=== PATIENT | female | born 1990 | race Caucasian/White ===

== ENCOUNTER → 2016-07-24 | Outpatient (REF) | payer MEDICAID | LOC: M LAB REF 15:15 | PROVIDERS: ATTEND Physician Assistant | DX: B34.9 Viral infection, unspecified (principal) ==

== ENCOUNTER 2016-07-29 11:20 | Emergency (ER) | payer MEDICAID ==
[~2016-07-29] VITALS: Ht 172.7 cm; Wt 72.6 kg
[2016-07-29 11:22] VITALS: BP 151/71
[2016-07-29] MEDS ORDERED: CITA20TA4 (11:57)
[2016-07-29] MEDS ORDERED: ADDE20CA (11:57)
[2016-07-29] MEDS ORDERED: VALA500T (11:57)
[2016-07-29] MEDS ORDERED: NS 1,000 ML IV ONE (13:45)
[2016-07-29 14:06] LABS: BASO % 0.3 % (0.0-1.0); EOS # 0.1 K/mm3 (0.0-0.50); EOS % 1.2 % (0.0-3.0); LARGE UNSTAINED CELL # 0.1 K/mm3 (0.0-0.4); LARGE UNSTAINED CELL % 1.1 % (0.0-4.0); LYMPH # 1.2 K/mm3 (1.5-6.5); LYMPH % 13.1 % (24.0-44.0); MEAN CORPUSCULAR HEMOGLOBIN 31.5 pg (27.0-33.0); MEAN CORPUSCULAR HGB CONC 34.7 g/dl (32.0-36.5); MEAN CORPUSCULAR VOLUME 90.7 fl (80.0-96.0); MONO # 0.4 K/mm3 (0.0-0.8); MONO % 5.4 % (0.0-5.0); NEUTROPHILS # 6.5 K/mm3 (1.8-7.7); NEUTROPHILS % 78.8 % (36.0-66.0); PLATELET COUNT, AUTOMATED 197 k/mm3 (150-450); WHITE BLOOD COUNT 8.2 K/mm3 (4.0-10.0)
[2016-07-29 14:26] LABS: ANION GAP 6 MEQ/L (8-16); BLOOD UREA NITROGEN 9 MG/DL (7-18); CALCIUM LEVEL 9.2 MG/DL (8.5-10.1); CARBON DIOXIDE LEVEL 30 MEQ/L (21-32); CHLORIDE LEVEL 104 MEQ/L (98-107); GLOMERULAR FILTRATION RATE > 60.0 (>60); GLUCOSE, FASTING 87 MG/DL (70-105); POTASSIUM SERUM 3.5 MEQ/L (3.5-5.1); SODIUM LEVEL 140 MEQ/L (136-145)
[2016-07-29] MEDS ORDERED: MACR100C3 PO (14:41)
--- NOTE | 2016-07-30 10:37 | ECGEPIP ---
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
== END 2016-07-29 14:57 | disposition home or self-care (01) ==
LOC: M ED 11:20
DX: N30.00 Acute cystitis without hematuria (principal); R11.2 Nausea with vomiting, unspecified; R42 Dizziness and giddiness; M54.5 Low back pain; F17.210 Nicotine dependence, cigarettes, uncomplicated; F41.9 Anxiety disorder, unspecified; Z79.899 Other long term (current) drug therapy

== ENCOUNTER → 2016-08-04 | Outpatient (REF) | payer MEDICAID ==
[~2016-08-04] MED LIST: ADDE20CA; CITA20TA4; MACR100C3 PO; VALA500T
== END ==
LOC: M SFHCADAM 20:01
PROVIDERS: ATTEND Physician Assistant Medical
DX: N30.00 Acute cystitis without hematuria (principal)

== ENCOUNTER → 2016-08-13 | Outpatient (REF) | payer MEDICAID | LOC: M SFHCADAM 15:32 | PROVIDERS: ATTEND Physician Assistant Medical | DX: N30.00 Acute cystitis without hematuria (principal) ==

== ENCOUNTER 2016-11-08 10:26 | Emergency (ER) | payer MEDICAID, SELFPAY ==
[~2016-11-08] VITALS: Ht 172.7 cm; Wt 75.8 kg
[~2016-11-08 10:26] MED LIST changes: -ADDE20CA; +ADDE20CA3; -MACR100C3 PO; +MACR100C43 PO; -VALA500T; +VALA500T2
[2016-11-08] MEDS ORDERED: ADDE25CA PO (10:39)
[2016-11-08] MEDS ORDERED: CELE20TA PO (10:39)
[2016-11-08 11:54] LABS: BASO % 0.4 % (0.0-1.0); EOS % 0.6 % (0.0-3.0); LARGE UNSTAINED CELL # 0.1 K/mm3 (0.0-0.4); LARGE UNSTAINED CELL % 0.8 % (0.0-4.0); LYMPH # 0.6 K/mm3 (1.5-6.5); LYMPH % 6.3 % (24.0-44.0); MEAN CORPUSCULAR HEMOGLOBIN 31.2 pg (27.0-33.0); MEAN CORPUSCULAR HGB CONC 34.3 g/dl (32.0-36.5); MEAN CORPUSCULAR VOLUME 91.1 fl (80.0-96.0); MONO # 0.4 K/mm3 (0.0-0.8); MONO % 4.5 % (0.0-5.0); NEUTROPHILS # 7.1 K/mm3 (1.8-7.7); NEUTROPHILS % 87.4 % (36.0-66.0); PLATELET COUNT, AUTOMATED 190 k/mm3 (150-450); RED CELL DISTRIBUTION WIDTH 11.6 % (11.5-14.5); WHITE BLOOD COUNT 8.1 K/mm3 (4.0-10.0)
[2016-11-08 12:00] LABS: ALBUMIN 3.8 GM/DL (3.2-5.2); ALBUMIN/GLOBULIN RATIO 1.19 (1.00-1.93); ALKALINE PHOSPHATASE 53 U/L (45-117); ALT/SGPT 30 U/L (12-78); ANION GAP 4 MEQ/L (8-16); AST/SGOT 18 U/L (15-37); BILIRUBIN,TOTAL 0.9 MG/DL (0.2-1.0); BLOOD UREA NITROGEN 12 MG/DL (7-18); CARBON DIOXIDE LEVEL 31 MEQ/L (21-32); CHLORIDE LEVEL 103 MEQ/L (98-107); CREATININE FOR GFR 0.66 MG/DL (0.55-1.02); GLOMERULAR FILTRATION RATE > 60.0 (>60); GLUCOSE, FASTING 82 MG/DL (70-105); POTASSIUM SERUM 3.9 MEQ/L (3.5-5.1); SODIUM LEVEL 138 MEQ/L (136-145)
--- NOTE | 2016-11-08 12:04 | REP ---
PA and lateral chest: Comparison is a 03/20/2011. There is thoracic scoliosis convex right in the upper thoracic spine, unchanged. Lung parson are clear. Cardiac size is normal. The amarjit, mediastinum, and bony thorax are unremarkable. Impression: There are no acute cardiopulmonary findings. No interval change. Signed by Hiro Caballero MD 11/08/2016 11:56 A
[2016-11-08 12:36] VITALS: BP 131/75
[2016-11-08] MEDS ORDERED: TYLE325T5 PO (12:36)
== END 2016-11-08 12:50 | disposition home or self-care (01) ==
LOC: M ED 10:54
DX: M54.9 Dorsalgia, unspecified (principal); A60.00 Herpesviral infection of urogenital system, unspecified; F41.9 Anxiety disorder, unspecified; Z79.899 Other long term (current) drug therapy

== ENCOUNTER → 2016-11-27 | Outpatient (REF) | payer MEDICAID, OTHER ==
[~2016-11-27] MED LIST changes: +ADDE25CA PO; +CELE20TA PO; +GABA-282 PO; +MECL-68 PO; +NAPR500T PO; +ROBA500T PO; +TYLE325T5 PO
== END ==
LOC: M SFHCWAGY 16:08
PROVIDERS: ATTEND Nurse Practitioner Women's Health
DX: Z12.4 Encounter for screening for malignant neoplasm of cervix (principal); R87.610 Atypical squamous cells of undetermined significance on cytologic smear of cervix (ASC-US)

== ENCOUNTER → 2016-12-11 | Outpatient (REF) | payer MEDICAID, OTHER ==
[2016-12-14 00:11] LABS: Lyme Disease IgG/IgM Antibodie <0.91 ISR (0.00-0.90); Lyme Disease IgM Ab Quantitati <0.80 index (0.00-0.79)
== END ==
LOC: M SFHCADAM 14:23
PROVIDERS: ATTEND Physician Assistant Medical
DX: R53.83 Other fatigue (principal); R53.81 Other malaise; M79.1 Myalgia

== ENCOUNTER 2017-01-20 09:44 | Emergency (ER) | payer OTHER ==
[~2017-01-20] VITALS: Ht 172.7 cm; Wt 73.6 kg
[~2017-01-20 09:44] MED LIST changes: -GABA-282 PO; -MECL-68 PO; -NAPR500T PO; -ROBA500T PO
[2017-01-20] MEDS ORDERED: MECLIZINE 25 MG TABLET PO ONE (10:30)
[2017-01-20 10:39] LABS: BASO % 0.6 % (0.0-1.0); EOS # 0.1 K/mm3 (0.0-0.50); EOS % 2.2 % (0.0-3.0); LARGE UNSTAINED CELL # 0.1 K/mm3 (0.0-0.4); LARGE UNSTAINED CELL % 1.7 % (0.0-4.0); LYMPH # 1.4 K/mm3 (1.5-6.5); LYMPH % 21.4 % (24.0-44.0); MEAN CORPUSCULAR HGB CONC 34.4 g/dl (32.0-36.5); MEAN CORPUSCULAR VOLUME 90.3 fl (80.0-96.0); MONO # 0.4 K/mm3 (0.0-0.8); MONO % 6.1 % (0.0-5.0); NEUTROPHILS % 68.1 % (36.0-66.0); PLATELET COUNT, AUTOMATED 197 k/mm3 (150-450); WHITE BLOOD COUNT 5.9 K/mm3 (4.0-10.0)
[2017-01-20 11:05] LABS: ANION GAP 5 MEQ/L (8-16); BLOOD UREA NITROGEN 15 MG/DL (7-18); CALCIUM LEVEL 9.4 MG/DL (8.5-10.1); CARBON DIOXIDE LEVEL 30 MEQ/L (21-32); CHLORIDE LEVEL 105 MEQ/L (98-107); CREATININE FOR GFR 0.76 MG/DL (0.55-1.02); GLOMERULAR FILTRATION RATE > 60.0 (>60); GLUCOSE, FASTING 87 MG/DL (70-105); POTASSIUM SERUM 4.3 MEQ/L (3.5-5.1); SODIUM LEVEL 140 MEQ/L (136-145)
--- NOTE | 2017-01-20 11:15 | REP ---
CT Head without contrast HISTORY: Syncope COMPARISON: None There is no intraparenchymal hemorrhage, acute infarct, mass or midline shift. The ventricular system is normal in appearance. There is no extra cerebral collection. A irene cisterna magna is present. There is no fracture. The visualized sinuses are clear. IMPRESSION: There is no intracranial lesion. Signed by Rey Guzman MD 01/20/2017 11:06 A
[2017-01-20 11:24] VITALS: BP 146/92
[2017-01-20] MEDS ORDERED: MECL-68 PO (11:39)
== END 2017-01-20 11:44 | disposition home or self-care (01) ==
LOC: M ED 09:44
DX: H81.399 Other peripheral vertigo, unspecified ear (principal); F41.9 Anxiety disorder, unspecified; M54.5 Low back pain; A60.09 Herpesviral infection of other urogenital tract; Z79.899 Other long term (current) drug therapy

== ENCOUNTER → 2017-02-24 | Outpatient (REF) | payer OTHER ==
[~2017-02-24] MED LIST changes: +GABA-282 PO; +MECL-68 PO; +NAPR500T PO; +ROBA500T PO
== END ==
LOC: M SFHCADAM 16:02
PROVIDERS: ATTEND Physician Assistant Medical
DX: Z20.820 Contact with and (suspected) exposure to varicella (principal)

== ENCOUNTER → 2017-02-24 | Outpatient (CLI) | payer OTHER ==
--- NOTE | 2017-02-24 16:35 | REP ---
LUMBAR SPINE, FIVE VIEWS: HISTORY: Back pain. COMPARISON: 01/08/2011 There is no acute fracture or subluxation. The L3-4 and L4-5 intervertebral discs are decreased in height consistent with disc degeneration. The facet joints are normal in appearance. IMPRESSION: Degenerative change as described above. Signed by Rey Guzman MD 02/24/2017 04:36 P
== END ==
LOC: M RAD 15:26
PROVIDERS: ATTEND Physician Assistant
DX: M54.5 Low back pain (principal)

== ENCOUNTER 2017-02-27 12:30 | Emergency (ER) | payer OTHER ==
[~2017-02-27] VITALS: Ht 172.7 cm; Wt 72.7 kg
[~2017-02-27 12:30] MED LIST changes: -GABA-282 PO; -NAPR500T PO; -ROBA500T PO
[2017-02-27] MEDS ORDERED: GABA-282 PO (15:27)
[2017-02-27] MEDS ORDERED: ROBA500T PO (15:27)
[2017-02-27] MEDS ORDERED: NAPR500T PO (15:27)
[2017-02-27 15:40] VITALS: BP 128/78
== END 2017-02-27 15:40 | disposition home or self-care (01) ==
LOC: M ED 12:30
DX: M54.42 Lumbago with sciatica, left side (principal); M53.3 Sacrococcygeal disorders, not elsewhere classified

== ENCOUNTER → 2017-06-07 | Outpatient (REF) | payer OTHER ==
[2017-06-07 18:16] LABS: BASO % 0.6 % (0.0-1.0); EOS # 0.2 10^3/uL (0.0-0.50); EOS % 3.4 % (0.0-3.0); HEMATOCRIT 41.3 % (36.0-47.0); HEMOGLOBIN 14.3 g/dl (12.0-16.0); IMMATURE GRANULOCYTE % 0.3 % (0-0); LYMPH # 1.4 10^3/uL (1.5-6.5); LYMPH % 19.5 % (24.0-44.0); MEAN CORPUSCULAR HGB CONC 34.6 g/dl (32.0-36.5); MEAN CORPUSCULAR VOLUME 86.6 fl (80.0-96.0); MONO # 0.6 10^3/uL (0.0-0.8); MONO % 8.2 % (0.0-5.0); NEUTROPHILS # 4.8 10^3/uL (1.8-7.7); PLATELET COUNT, AUTOMATED 250 10^3/uL (150-450); RED BLOOD COUNT 4.77 10^6/uL (4.00-5.40); RED CELL DISTRIBUTION WIDTH 11.7 % (11.5-14.5); WHITE BLOOD COUNT 7.1 10^3/uL (4.0-10.0)
[2017-06-07 18:39] LABS: ALBUMIN 4.2 GM/DL (3.2-5.2); ALBUMIN/GLOBULIN RATIO 1.35 (1.00-1.93); ALKALINE PHOSPHATASE 54 U/L (45-117); ALT/SGPT 29 U/L (12-78); ANION GAP 5 MEQ/L (8-16); AST/SGOT 19 U/L (7-37); BILIRUBIN,TOTAL 0.7 MG/DL (0.2-1.0); BLOOD UREA NITROGEN 15 MG/DL (7-18); CARBON DIOXIDE LEVEL 31 MEQ/L (21-32); CHLORIDE LEVEL 106 MEQ/L (98-107); CREATININE FOR GFR 0.65 MG/DL (0.55-1.02); GLOMERULAR FILTRATION RATE > 60.0 (>60); GLUCOSE, FASTING 85 MG/DL (70-105); SODIUM LEVEL 142 MEQ/L (136-145); TOTAL PROTEIN 7.3 GM/DL (6.4-8.2)
[2017-06-08 07:28] LABS: CONTROL LINE MONO RF C INT CTR LINE PRESENT; MONO REFLEX EBV COMP NEGATIVE (NEGATIVE)
[2017-06-10 00:07] LABS: EBV VIRAL CAPSID AG IgM <36.0 U/mL (0.0-35.9)
[2017-06-10 00:07] LABS: EBV AB TO NUCLEAR ANTIGEN <18.0 U/mL (0.0-17.9); EBV VIRAL CAPSID AG IgG 27.9 U/mL (0.0-17.9)
== END ==
LOC: M LABDRWAD 09:16
DX: R53.83 Other fatigue (principal)

== ENCOUNTER → 2017-07-01 | Outpatient (REF) | payer OTHER | LOC: M SFHCLERA 14:48 | DX: L29.9 Pruritus, unspecified (principal) ==

== ENCOUNTER → 2017-08-03 | Outpatient (REF) | payer OTHER | LOC: M SFHCLERA 11:56 | DX: D48.5 Neoplasm of uncertain behavior of skin (principal) | CPT/HCPCS: 88305 ==

== ENCOUNTER 2017-08-07 13:06 | Emergency (ER) | payer OTHER | END 2017-08-07 15:14 | disposition home or self-care (01) | LOC: M ED 13:06 | DX: S16.1XXA Strain of muscle, fascia and tendon at neck level, initial encounter (principal); V49.49XA Driver injured in collision with other motor vehicles in traffic accident, initial encounter; Y92.410 Unspecified street and highway as the place of occurrence of the external cause; G89.29 Other chronic pain; M54.5 Low back pain; Z79.899 Other long term (current) drug therapy | CPT/HCPCS: 72125 ==

== ENCOUNTER → 2017-11-09 | Outpatient (REF) | payer OTHER | LOC: M SFHCLERA 21:20 | DX: T14.8XXA Other injury of unspecified body region, initial encounter (principal); X58.XXXA Exposure to other specified factors, initial encounter; Y92.89 Other specified places as the place of occurrence of the external cause | CPT/HCPCS: 87186; 87205 ==

== ENCOUNTER → 2017-12-22 | Outpatient (REF) | payer OTHER | LOC: M SFHCWAGY 14:40 | DX: Z12.4 Encounter for screening for malignant neoplasm of cervix (principal) | CPT/HCPCS: 88142 ==

== ENCOUNTER → 2018-06-21 | Outpatient (REF) | payer OTHER ==
[~2018-06-21] MED LIST changes: +DOXY150T9 PO; +GABA-843 PO; +MELO15TA28 PO; +NAPR-50 PO; +ROBA500T PO; -VALA500T2; +VALA500T5
[2018-06-21 17:45] LABS: CHLAMYDIA DNA AMPLIFICATION NEGATIVE (NEGATIVE); GC DNA AMPLIFICATION NEGATIVE (NEGATIVE)
== END ==
LOC: M SFHCWAGY 15:26
PROVIDERS: ATTEND Nurse Practitioner Women's Health
DX: Z11.3 Encounter for screening for infections with a predominantly sexual mode of transmission (principal)

== ENCOUNTER → 2018-06-24 | Outpatient (CLI) | payer OTHER ==
--- NOTE | 2018-06-24 21:31 | REP ---
Clinical: Pelvic pain abnormal vaginal bleeding. Technique: Transabdominal pelvic ultrasound followed by transvaginal examination for better evaluation of the endometrium and adnexa with color Doppler evaluation of the ovaries. Findings: Bladder is unremarkable and measures 9.7 x 4.7 x 8.4 cm . Heterogeneous anteverted uterus measures 7.3 x 3.0 x 4.5 cm . The endometrial complex measures 4.1 mm thickness. No discrete uterine or endometrial abnormalities are appreciated. Subcentimeter Nabothian cyst noted in the lower uterine segment. Bilateral ovaries are normal in appearance and vascularity without evidence for torsion. Right ovary measures 2.3 x 1.1 x 2.3 cm ; R I = 0.40 . Left ovary measures 2.3 x 1.0 x 2.4 cm ; R I = 0.52 . No pelvic fluid or adnexal mass lesion . Impression: 1. Essentially normal pelvic ultrasound. No torsion. Electronically Signed by Rajat Pastor MD 06/24/2018 09:22 P
== END ==
LOC: M WHC 11:14
PROVIDERS: ATTEND Nurse Practitioner Women's Health
DX: R10.9 Unspecified abdominal pain (principal); R14.0 Abdominal distension (gaseous); N92.1 Excessive and frequent menstruation with irregular cycle

== ENCOUNTER → 2018-10-08 | Outpatient (REF) | payer OTHER ==
[~2018-10-08] MED LIST changes: -CITA20TA4; +CITA20TA6; -NAPR-50 PO; +NAPR-837 PO
[2018-10-08 20:50] LABS: FREE T4 0.81 NG/DL (0.76-1.46); THYROID STIMULATING HORMONE 1.84 uIU/ML (0.358-3.740)
== END ==
LOC: M SFHCADAM 15:50
PROVIDERS: ATTEND Physician Assistant Medical
DX: E66.3 Overweight (principal)

== ENCOUNTER → 2019-02-28 | Outpatient (CLI) | payer OTHER ==
--- NOTE | 2019-02-28 14:17 | REP ---
REASON: Arm paresthesias particularly on the left side. PRIORS: None. No history of trauma whatsoever. Vertebral body height and alignment is within normal limits. There is slight posterior disc space narrowing at every level. There is a subtle kyphotic curve seen on the neutral lateral view, however, flexion and extension lateral views show no evidence of significant range of motion deficit radiographically. The facet joints are well aligned bilaterally. The intervertebral foramina are ample bilaterally. IMPRESSION: No etta abnormality is noted. Findings as described above. Electronically Signed by Jarrod Farmer DO 02/28/2019 02:40 P
== END ==
LOC: M ADAMS 09:59
PROVIDERS: ATTEND Physician Assistant Medical
DX: R20.2 Paresthesia of skin (principal)

== ENCOUNTER → 2020-07-29 | Outpatient (CLI) | payer OTHER ==
[~2020-07-29] MED LIST changes: +BUPR15TA PO; +GABA-282 PO; -GABA-843 PO; -MECL-68 PO; +MECL1TAB31 PO; -VALA500T5; +VALA500T5 PO; +VENL75CA2 PO
== END ==
LOC: M LABSMTC 08:35
PROVIDERS: ATTEND Anesthesiology
DX: Z01.812 Encounter for preprocedural laboratory examination (principal); Z20.822 Contact with and (suspected) exposure to COVID-19

== ENCOUNTER 2020-08-03 05:46 | Day surgery (SDC) | payer OTHER ==
[~2020-08-03] VITALS: Ht 175.3 cm; Wt 91.2 kg
[2020-08-03 06:32] LABS: HEMATOCRIT 39.8 % (36.0-47.0); HEMOGLOBIN 13.1 g/dl (12.0-15.5); MEAN CORPUSCULAR HEMOGLOBIN 29.9 pg (27.0-33.0); MEAN CORPUSCULAR HGB CONC 32.9 g/dl (32.0-36.5); MEAN CORPUSCULAR VOLUME 90.9 fl (80.0-96.0); PLATELET COUNT, AUTOMATED 204 10^3/uL (150-450); RED BLOOD COUNT 4.38 10^6/uL (4.00-5.40); WHITE BLOOD COUNT 7.4 10^3/uL (4.0-10.0)
[2020-08-03] MEDS ORDERED: LR 1,000 ML IV ONE (07:00)
[2020-08-03] MEDS ORDERED: BUPIVACAINE HCL 0.25% 30ML VIAL As Ordered ONE (07:12)
[2020-08-03] MEDS ORDERED: SILVER NITRATE APPLICATOR As Ordered ONE (07:12)
[2020-08-03] MEDS ORDERED: SUGAMMADEX SODIUM 500 MG/5 ML VIAL (BRIDION) As Ordered ONE (07:17)
[2020-08-03] MEDS ORDERED: ROCURONIUM BROMIDE 50 MG/5 ML VIAL As Ordered ONE (07:17)
[2020-08-03] MEDS ORDERED: propofoL 200 MG/20 ML VIAL As Ordered ONE (07:17)
[2020-08-03] MEDS ORDERED: dexameTHASONE 4 MG/ML 1ML VIAL (J1100 PER 1MG) As Ordered ONE (07:17)
[2020-08-03] MEDS ORDERED: ACETAMINOPHEN 1000MG 100ML IV BTL (OFIRMEV) (J0131 PER 10MG) As Ordered ONE (07:17)
[2020-08-03] MEDS ORDERED: KETOROLAC 60MG 2ML VIAL As Ordered ONE (07:17)
[2020-08-03] MEDS ORDERED: LIDOCAINE 2% 100MG/5ML SDV (FOR ANES.) As Ordered ONE (07:17)
[2020-08-03] MEDS ORDERED: ONDANSETRON 4MG/2ML VIAL As Ordered ONE (07:17)
[2020-08-03] MEDS ORDERED: fentaNYL 100 MCG/2 ML INJECTION (J3010) As Ordered ONE ×2 (07:18→08:04)
[2020-08-03] MEDS ORDERED: MIDAZOLAM INJ 2MG/2ML VIAL (J2250 PER 1MG) As Ordered ONE (07:18)
[2020-08-03] MEDS ORDERED: LIDOCAINE 5% OINT 30GM TUBE As Ordered ONE (07:45)
--- NOTE | 2020-08-03 08:34 | ROOPDOC ---
[facility] Report Of Operation Report of Operation Date of procedure: 08/03/20 Preoperative diagnosis: Satisfied parity. Postoperative diagnosis: Same Procedure: Laparoscopic bilateral salpingectomy Anesthesia: Gen. endotracheal Estimated blood loss 5 mL IV fluids replaced 800 mL lactated Ringer's Drains: In and out catheter 100 mL of urine Complications: None Preoperative antibiotics: None indicated Specimens: Bilateral fallopian tubes Intraoperative findings: Normal size, shape, contour of the uterus. Normal adnexa/ovaries bilaterally. Minimal pelvic adhesions Procedure: The patient was counseled and consented on the risks, benefits, indications, and alternatives of the procedure. Informed consent was obtained. She was taken to the operating room with an IV running. She was placed on the operating table in the dorsal supine position. Gen. anesthesia was administered and the airway was secured without any difficulty. A timeout was performed per protocol. She was prepared and draped in the normal sterile fashion. Attention was turned to the pelvis. The bladder was drained with in and out sterile catheter. A speculum was placed into the vagina with good visualization of the cervix. A single- tooth tenaculum was placed on the anterior lip of the cervix and downward traction was applied. The cervix was sequentially dilated with Gallito dilators up to a #16. A ZUMI uterine manipulator was placed without any difficulty. The single-tooth tenaculum was removed. The tenaculum sites were noted to be hemostatic. A sterile glove switch was performed. Attention was turned to the abdomen. A 5mm umbilical incision was made with the 11 blade. Through this incision, a Veress needle was placed into the intraperitoneal cavity. Intraperitoneal placement was confirmed with ease of flow of normal saline, a positive drop test and no return on aspiration. The opening pressure was 2 mmHg. The abdomen was insufflated with 2 L of CO2. The Veress needle was removed. A 5 mm laparoscopic trocar was placed under direct visualization without any difficulty, and intraperitoneal placement was confirmed. No incidental bleeding or injury was evident. The patient was placed in steep Trendelenburg. 2 additional laparoscopic port sites were placed through 5 mm incisions in the lower left quadrant. Each trocar/cannula was placed under direct visualization without any difficulty, incidental bleeding or injury. Attention was turned to the right fallopian tube. The right fallopian tube was followed out to the fimbriated end, grasped and elevated. The underlying mesosalpinx was sequentially clamped, coagulated and transected, until the level of the cornu was reached. At this level, the fallopian tube was clamped, coagulated and transected, thus amputating the fallopian tube. The fallopian tube was brought through the cannula without any difficulty and sent to pathology for permanent section. Attention was turned to the left fallopian tube. The left fallopian tube was followed out to the fimbriated end, grasped and elevated. The underlying mesosalpinx was sequentially clamped, coagulated and transected, until the level of the cornu was reached. At this level the fallopian tube was clamped, coagulated and transected, thus amputating the fallopian tube. The fallopian tube was brought to the cannula without any difficulty and sent to pathology for permanent section. Both right and left surgical sites were noted to be completely hemostatic. The gas was released from the abdomen. The patient was taken out of Trendelenburg position. The cannulas were removed. The skin incisions were closed with 4-0 Monocryl in subcuticular fashion and reinforced with Dermabond. The uterine manipulator was removed, the vagina was noted to be clear of any sponge or instrument. Sponge, needle and instrument counts were correct per protocol. The patient tolerated the entire procedure very well. She was transferred to the PACU in good and stable condition. DO MARICHUY Mcmillan JONATHAN R. DO Aug 03, 2020 08:34
[2020-08-03] MEDS ORDERED: OXYC1TAB23 PO (08:35)
[2020-08-03] MEDS ORDERED: IBUP80TA PO (08:37)
[2020-08-03] MEDS ORDERED: fentaNYL 100 MCG/2 ML INJECTION (J3010) IV PRN (09:00)
[2020-08-03] MEDS ORDERED: ONDANSETRON 4MG/2ML VIAL IV PRN (09:00)
[2020-08-03] MEDS ORDERED: METOCLOPRAMIDE INJ 10MG/2ML VIAL (J2765 PER 1) IV PRN (09:00)
[2020-08-03] MEDS ORDERED: LR 1,000 ML IV SCH (09:00)
[2020-08-03] MEDS ORDERED: oxyCODONE 5MG TAB PO PRN (09:00)
[2020-08-03 10:25] VITALS: BP 132/77
== END 2020-08-03 10:45 | disposition home or self-care (01) ==
LOC: M SDC 05:46
PROVIDERS: ATTEND Obstetrics & Gynecology
DX: Z30.2 Encounter for sterilization (principal); F41.9 Anxiety disorder, unspecified; F32.9 Major depressive disorder, single episode, unspecified; A60.00 Herpesviral infection of urogenital system, unspecified; Z79.899 Other long term (current) drug therapy
CPT/HCPCS: 36415; 58661; 84702; 85027; 86850; 86900; 86901; 88302; J0131; J1100; J1885; J2250; J2405; J3010

== ENCOUNTER → 2020-09-24 | Outpatient (REF) | payer OTHER ==
[~2020-09-24] MED LIST changes: +IBUP80TA PO; +OXYC1TAB23 PO
[2020-09-24 17:32] LABS: BASO # 0.1 10^3/uL (0.0-0.2); BASO % 0.5 % (0.0-1.0); EOS # 0.1 10^3/uL (0.0-0.5); EOS % 1.5 % (0.0-3.0); HEMATOCRIT 42.2 % (36.0-47.0); HEMOGLOBIN 14.1 g/dl (12.0-15.5); LYMPH # 1.3 10^3/uL (1.5-5.0); LYMPH % 13.8 % (24.0-44.0); MEAN CORPUSCULAR HEMOGLOBIN 30.4 pg (27.0-33.0); MEAN CORPUSCULAR HGB CONC 33.4 g/dl (32.0-36.5); MEAN CORPUSCULAR VOLUME 90.9 fl (80.0-96.0); MONO # 0.4 10^3/uL (0.0-0.8); MONO % 3.9 % (2.0-8.0); NEUTROPHILS # 7.7 10^3/uL (1.5-8.5); NEUTROPHILS % 79.9 % (36.0-66.0); PLATELET COUNT, AUTOMATED 243 10^3/uL (150-450); RED BLOOD COUNT 4.64 10^6/uL (4.00-5.40); WHITE BLOOD COUNT 9.6 10^3/uL (4.0-10.0)
== END ==
LOC: M SFHCADAM 11:51
PROVIDERS: ATTEND Physician Assistant Medical
DX: E66.3 Overweight (principal); F90.0 Attention-deficit hyperactivity disorder, predominantly inattentive type; F32.9 Major depressive disorder, single episode, unspecified

== ENCOUNTER → 2020-10-01 | Outpatient (REF) | payer OTHER ==
[2020-10-01 15:24] LABS: ALBUMIN 3.7 GM/DL (3.2-5.2); ALT/SGPT 34 U/L (12-78); BILIRUBIN,TOTAL 0.3 MG/DL (0.2-1.0); BLOOD UREA NITROGEN 23 MG/DL (7-18); CALCIUM LEVEL 9.5 MG/DL (8.5-10.1); CARBON DIOXIDE LEVEL 30 MEQ/L (21-32); CHLORIDE LEVEL 106 MEQ/L (98-107); CHOLESTEROL LEVEL 179 MG/DL (<200); CHOLESTEROL RISK RATIO 3.254 (<5); CREATININE FOR GFR 0.78 MG/DL (0.55-1.30); GLOMERULAR FILTRATION RATE > 60.0 (>60); GLUCOSE, FASTING 83 MG/DL (70-100); HDL CHOLESTEROL 55 MG/DL (>40); LDL CHOLESTEROL 107 MG/DL (<100); NON-HDL-C 124 MG/DL; POTASSIUM SERUM 4.4 MEQ/L (3.5-5.1); SODIUM LEVEL 140 MEQ/L (136-145); TOTAL 25(OH) VITAMIN D 63.9 NG/ML (30.0-100.0); TOTAL PROTEIN 6.8 GM/DL (6.4-8.2); TRIGLYCERIDES LEVEL 86 MG/DL (<150)
== END ==
LOC: M SFHCADAM 08:23
PROVIDERS: ATTEND Physician Assistant Medical
DX: E66.3 Overweight (principal); F90.0 Attention-deficit hyperactivity disorder, predominantly inattentive type; F32.9 Major depressive disorder, single episode, unspecified

== ENCOUNTER → 2020-10-03 | Outpatient (REF) | payer OTHER | LOC: M SFHCADAM 12:14 | PROVIDERS: ATTEND Physician Assistant Medical | DX: E66.3 Overweight (principal); F43.9 Reaction to severe stress, unspecified; F90.0 Attention-deficit hyperactivity disorder, predominantly inattentive type; F32.9 Major depressive disorder, single episode, unspecified ==

== ENCOUNTER → 2020-10-17 | Outpatient (REF) | payer OTHER | LOC: M SFHCWAGY 12:53 | PROVIDERS: ATTEND Nurse Practitioner Women's Health | DX: Z12.4 Encounter for screening for malignant neoplasm of cervix (principal) ==

== ENCOUNTER → 2021-02-22 | Outpatient (CLI) | payer OTHER | LOC: M LABSMTC 11:02 | PROVIDERS: ATTEND Pediatrics | DX: Z20.822 Contact with and (suspected) exposure to COVID-19 (principal) ==

== ENCOUNTER → 2022-06-10 | Outpatient (REF) | payer OTHER ==
[~2022-06-10] MED LIST changes: -DOXY150T9 PO; +[UNRECOGNIZED DRUG - CODE] PO
== END ==
LOC: M PLALAB 10:08
PROVIDERS: ATTEND Obstetrics & Gynecology
DX: Z12.4 Encounter for screening for malignant neoplasm of cervix (principal); R87.610 Atypical squamous cells of undetermined significance on cytologic smear of cervix (ASC-US)

== ENCOUNTER → 2024-02-25 | Outpatient (REF) | payer BC, MEDICAID, OTHER ==
[~2024-02-25] MED LIST changes: +MECL-209 PO; -MECL1TAB31 PO
[2024-02-29 12:26] LABS: HPV APTIMA Not Detected (Not Detected)
== END ==
LOC: M SFHCWAGY 13:17
PROVIDERS: ATTEND Obstetrics & Gynecology
DX: Z12.4 Encounter for screening for malignant neoplasm of cervix (principal)
CPT/HCPCS: 87624; G0123

== ENCOUNTER → 2024-04-05 | Outpatient (CLI) | payer BC ==
[~2024-04-05] MED LIST changes: +GABA-1172 PO; -GABA-282 PO
[2024-04-05 11:15] LABS: HEMATOCRIT 38.7 % (36.0-47.0); HEMOGLOBIN 13.2 g/dl (12.0-15.5); MEAN CORPUSCULAR HGB CONC 34.1 g/dl (32.0-36.5); MEAN CORPUSCULAR VOLUME 90.8 fl (80.0-96.0); PLATELET COUNT, AUTOMATED 274 10^3/uL (150-450); RED BLOOD COUNT 4.26 10^6/uL (4.00-5.40)
== END ==
LOC: M PLALAB 06:49
PROVIDERS: ATTEND Obstetrics & Gynecology
DX: N93.9 Abnormal uterine and vaginal bleeding, unspecified (principal)

== ENCOUNTER → 2024-04-05 | Outpatient (CLI) | payer BC ==
[2024-04-05 11:16] LABS: BASO # 0.1 10^3/uL (0.0-0.2); EOS # 0.2 10^3/uL (0.0-0.5); EOS % 3.3 % (0.0-3.0); HEMATOCRIT 39.2 % (36.0-47.0); HEMOGLOBIN 13.1 g/dl (12.0-15.5); LYMPH # 1.1 10^3/uL (1.5-5.0); LYMPH % 18.2 % (24.0-44.0); MEAN CORPUSCULAR HEMOGLOBIN 30.8 pg (27.0-33.0); MEAN CORPUSCULAR HGB CONC 33.4 g/dl (32.0-36.5); MONO # 0.5 10^3/uL (0.0-0.8); MONO % 8.6 % (2.0-8.0); NEUTROPHILS # 4.1 10^3/uL (1.5-8.5); NEUTROPHILS % 68.7 % (36.0-66.0); PLATELET COUNT, AUTOMATED 275 10^3/uL (150-450); RED BLOOD COUNT 4.26 10^6/uL (4.00-5.40)
[2024-04-05 11:50] LABS: THYROID STIMULATING HORMONE 1.523 uIU/ML (0.55-4.78)
[2024-04-05 11:51] LABS: ALBUMIN 3.7 G/DL (3.2-5.2); ALKALINE PHOSPHATASE 51 U/L (35-104); ALT/SGPT 21 U/L (7.0-40); AST/SGOT 14 U/L (<34); BILIRUBIN,TOTAL 0.4 MG/DL (0.3-1.2); BLOOD UREA NITROGEN 9 MG/DL (9-23); CALCIUM LEVEL 9.4 MG/DL (8.5-10.1); CARBON DIOXIDE LEVEL 29 MMOL/L (20-31); CHLORIDE LEVEL 106 MMOL/L (98-107); CREATININE FOR GFR 0.78 MG/DL (0.55-1.30); FREE T4 1.09 NG/DL (0.89-1.76); GLOMERULAR FILTRATION RATE > 60.0 (>60); GLUCOSE, FASTING 84 MG/DL (60-100); POTASSIUM SERUM 4.2 MMOL/L (3.5-5.1); SODIUM LEVEL 141 MMOL/L (136-145); TOTAL PROTEIN 6.6 G/DL (5.7-8.2)
== END ==
LOC: M PLALAB 06:50
PROVIDERS: ATTEND Nurse Practitioner Psychiatric/Mental Health
DX: F33.9 Major depressive disorder, recurrent, unspecified (principal); Z79.899 Other long term (current) drug therapy

== ENCOUNTER → 2024-04-05 | Outpatient (CLI) | payer BC | LOC: M WHC 06:44 | PROVIDERS: ATTEND Obstetrics & Gynecology | DX: N93.9 Abnormal uterine and vaginal bleeding, unspecified (principal); R93.89 Abnormal findings on diagnostic imaging of other specified body structures; N88.8 Other specified noninflammatory disorders of cervix uteri ==

== ENCOUNTER → 2024-07-21 | Outpatient (REF) | payer BC ==
[2024-07-21 17:44] LABS: IMMUNOGLOBULIN A 183.6 MG/DL (40-350); IRON (FE) 30 UG/DL (50-170)
[2024-07-21 17:45] LABS: C REACTIVE PROTEIN QUANTITATIV < 0.50 MG/DL (<1.0); PERCENT SATURATION 8.1 % (13.2-45.0); RHEUMATOID FACTOR QUANT 8.6 IU/ML (<14); TOTAL IRON BINDING CAPACITY 370 UG/DL (250-425)
[2024-07-21 17:47] LABS: FERRITIN 24.2 NG/ML (7.3-270.7); THYROID PEROXIDASE ANTIBODY < 28.0 U/ML (<60.0)
[2024-07-21 18:17] LABS: HIV 1&2 SCREEN NEGATIVE (NEGATIVE)
== END ==
LOC: M LAB REF 16:24
PROVIDERS: ATTEND Internal Medicine
DX: R53.83 Other fatigue (principal); R21 Rash and other nonspecific skin eruption; M13.0 Polyarthritis, unspecified

== ENCOUNTER → 2024-08-12 | Outpatient (CLI) | payer BC | LOC: M RAD 14:04 | PROVIDERS: ATTEND Internal Medicine | DX: R59.0 Localized enlarged lymph nodes (principal) ==

== ENCOUNTER → 2025-01-19 | Outpatient (REF) | payer BC ==
[~2025-01-19] MED LIST changes: +ADDE30CA3 PO; +CELE40TA PO; +COLA100C5 PO; +LAMI25TA PO; +METR-265 PO; +ONDA-282 PO; +PERCOCET PO; +VALT500T PO; +[UNRECOGNIZED DRUG - CODE]
[2025-01-19 14:27] LABS: IRON (FE) 61.0 UG/DL (50-170); PERCENT SATURATION 15.1 % (13.2-45.0)
== END ==
LOC: M LAB REF 12:23
PROVIDERS: ATTEND Internal Medicine
DX: E61.1 Iron deficiency (principal)

== ENCOUNTER 2025-02-24 09:41 | Outpatient (CLI) | payer BC ==
[~2025-02-24] VITALS: Ht 177.8 cm; Wt 76.3 kg
[2025-02-24] VITALS (7 sets, daily range): BP systolic 116–141; BP diastolic 67–90; O2SAT 96–100
[~2025-02-24 09:41] MED LIST changes: +ALBUTEROL SULFATE 2.5 MG/0.5 ML INH CONCENTRATE NEB SOLN INH PRN; +EPINEPHrine INJ 1 MG/ML 1ML AMP IM PRN; +diphenhydrAMINE 50 MG/ML VIAL IV PRN
[2025-02-24] MEDS: IRON SUCROSE 500 MG in NS 250 ML OVER 4 HRS IV ONE (10:26)
== END 2025-02-24 15:35 | disposition home or self-care (01) ==
LOC: M INFU 09:41
PROVIDERS: ATTEND Internal Medicine
DX: E61.1 Iron deficiency (principal)
CPT/HCPCS: 96365; 96366; 96375; J1756; J2919

== ENCOUNTER → 2025-04-19 | Outpatient (REF) | payer BC ==
[~2025-04-19] MED LIST changes: -ALBUTEROL SULFATE 2.5 MG/0.5 ML INH CONCENTRATE NEB SOLN INH PRN; -EPINEPHrine INJ 1 MG/ML 1ML AMP IM PRN; -diphenhydrAMINE 50 MG/ML VIAL IV PRN
[2025-04-19 15:41] LABS: IRON (FE) 47.0 UG/DL (50-170); PERCENT SATURATION 14.0 % (13.2-45.0)
== END ==
LOC: M LAB REF 14:43
PROVIDERS: ATTEND Internal Medicine
DX: E61.1 Iron deficiency (principal)